=== PATIENT | female | born 1955 | race Caucasian/White ===

== ENCOUNTER 2022-07-28 11:10 | Day surgery (SDC) | payer MEDICARE, BC, SELFPAY ==
[2022-07-28] VITALS (24 sets, daily range): BP systolic 115–168; BP diastolic 63–98; PULSE 61–81; RESP 13–18; TEMP 35.8–36.9; O2SAT 87–100; BMI 33.2
[2022-07-28] MEDS: SODIUM CHLORIDE 0.9 % (FLUSH) 10 ML SYRINGE IVF (11:00)
[2022-07-28] MEDS: LACTATED RINGERS 1000 ML 1,000 ML 100 ML IV (11:00)
[2022-07-28] MEDS: CELECOXIB 200 MG CAPSULE PO ×2 (11:45→20:42)
[2022-07-28] MEDS: ACETAMINOPHEN 500 MG TABLET 1000 MG PO ×2 (11:45→19:02)
[2022-07-28] MEDS: fentaNYL 100 MCG/2 ML inj IVP (11:59)
[2022-07-28] MEDS: MIDAZOLAM HCL 1 MG/ML inj IVP (11:59)
--- NOTE | 2022-07-28 12:18 | SUR.PREOP ---
TIME?OUT:?1158 PT/RN/MDA?VERIFICATION?OF?SURGICAL?SITE,?PROCEDURE,?AND?CONSENT OBTAINED?PRIOR?TO?INVASIVE?PROCEDURE.
--- NOTE | 2022-07-28 12:37 | CRLHL7_ITS ---
For Patients: As a result of the Cures Act, medical imaging exams and procedure reports are released immediately into your electronic medical record. You may view this report before your referring provider. If you have questions, please contact your health care provider. Indication: post op TKA Technique: Two views left knee Findings/Impression: Hardware from a left total knee arthroplasty is in satisfactory position. Bone alignment is normal. No sign of acute fracture. Postop changes are within normal limits. Dictated by Sixto Wilkerson MD @ 07/29/2022 9:33:27 AM (Electronically Signed)
--- NOTE | 2022-07-28 12:37 | P.NB_ITS ---
Nerve Block Nerve Block Date Seen: 07/28/22 Type of block requested by surgeon for post-operative analgesia: geniculars Side: left Time out performed: Yes Verification of patient name: Yes Verification of date of : Yes Site marking: site marked Name of person performing procedure: Aman Continuous monitoring Was continuous monitoring of O2 sat, B/P, truck bench mechanic, recorded every 15 minutes?: Yes Procedure Checklist: sterile prep, needles and gloves Medications given in 5ml increments after negative aspiration: Ropivicaine %: 0.5 mL: 9 Needle gauge: 25 Patient tolerated procedure well: Yes Block Charges Block Charge (with Pro Fee): Genicular Nerve Block Use of Ultrasound Machine for Block: No
--- NOTE | 2022-07-28 12:37 | W.PM.NB ---
Nerve Block Nerve Block Date Seen: 07/28/22 Type of block requested by surgeon for post-operative analgesia: adductor canal Side: left Time out performed: Yes Verification of patient name: Yes Verification of date of : Yes Site marking: site marked Name of person performing procedure: Aman Continuous monitoring Was continuous monitoring of O2 sat, B/P, monitoring and evaluation advisor, recorded every 15 minutes?: Yes Procedure Checklist: sterile prep, needles and gloves Ultrasound guided. Images saved: Yes Medications given in 5ml increments after negative aspiration: Ropivicaine %: 0.5 mL: 20 Needle gauge: 20 Decadron (mg): 10 Precedex (mcg): 25 Patient tolerated procedure well: Yes Additional comments: Needle noted adjacent to nerve Block Charges Block Charge (with Pro Fee): Femoral Nerve Use of Ultrasound Machine for Block: Yes- US Guidance/pain block
--- NOTE | 2022-07-28 12:59 | W.ANESCHARGE ---
Anesthesia Charges Start Date/Time Anesthesia Start Date: 07/28/22 Anesthesia Start Time: 12:19 Stop Date/Time Anesthesia Stop Date: 07/28/22 Anesthesia Stop Time: 14:36 Summary Emergency: No
--- NOTE | 2022-07-28 13:49 | P.ORPRC_ITS ---
Procedure Note Date of procedure: 07/28/22 Procedure: PREOPERATIVE DIAGNOSIS: 1. Left knee osteoarthritis, primary, severe POSTOPERATIVE DIAGNOSIS: 1. Left knee osteoarthritis, primary, severe PROCEDURE: 1. Left total knee arthroplasty SURGEON: Franklyn Rodriguez MD. TEACHER INSTRUMENTAL: Fransisco Urbina PA-C - Of note, a skilled hospital aides and assistants teacher was critical for this case to aid in patient positioning, tissue retraction, limb manipulation/positioning, and closure. ANESTHESIA: Spinal anesthetic EBL: 50ml IMPLANTS: DePuy J&J all cemented TKA - Attune PS femur size 5 narrow, size 3 tibia, 5 poly spacer, 35 mm patella TOURNIQUET: 90 min at 300 torr COMPLICATIONS: None evident INDICATIONS: The patient is a pleasant 59-year-old female who has experienced severe left knee pain and difficulty bearing weight. Workup included x-rays which revealed severe osteoarthrosis in the knee. Given the deformity, the dysfunction, and the pain, as well as the failure of nonoperative management, recommendation was made for surgery. FINDINGS: Large effusion upon entering the joint. Full-thickness medial compartment chondral loss with erosion in the medial femur and tibia. Substantial chondromalacia remaining compartments. Small loose body seen posteriorly. Multiple osteophytes there were moderate to large in size around the perimeter. DESCRIPTION OF PROCEDURE: Following a thorough discussion of risks, benefits, and alternatives consent was obtained and the left knee was marked. The patient was brought to the operating room and placed supine on the operating table. Induction of anesthesia was undertaken. 2 g IV Ancef and 1 g tranexamic acid was administered within 1 hr of incision preoperatively. Proper time-out was performed identifying proper patient, site, procedure. The operative extremity was prepped and draped in the appropriate sterile fashion using ChloraPrep after the patient was positioned supine with all bony prominences well padded. A longitudinal, anterior, midline skin incision was made starting approximately 3cm proximal to the superior pole of the patella and advanced distal to the tibial tubercle. A median parapatellar arthrotomy was created. A medial subperiosteal sleeve was created with knife, moy elevator and curved osteotome. The retropatellar fatpad was resected and the synovium in the suprapatellar pouch excised to visualize the anterior femoral cortex. Femoral preparation was performed via an intramedullary guide. Step drill allowed access into the femoral canal. The distal cutting guide was placed with 5? of valgus and 11 mm cut on the distal femur due to flexion contracture of 15?. Femur was sized using a anterior referencing guide in 3? of external rotation. This found have a best fit with the sizing noted above. The 4 in 1 cutting block was then placed, and the distal femur shaped accordingly. The box cut was then created and the trial implant inserted to confirm appropriate fit. We turned our attention to the proximal tibia. Extramedullary guide was utilized for cutting with the goal of being 90 degree cut from the mechanical axis of the tibia in the varus/valgus plane utilizing tibial crest as the primary alignment. Initially a 2 mm resection was performed from the medial tibial plateau. Ultimately, balancing was achieved in both flexion and extension in both varus and valgus. The knee was able to achieve full extension as well comfortably. The patella was initially measured and found have a thickness of 22 mm. It was resected back to approximately 14 mm. It was sized to be a best fit with as noted above. This was drilled, trial placed. All trials were placed and found to have an excellent stability and balance. At this stage, trial implants were removed, the knee was thoroughly irrigated with normal saline, and the cement was mixed. After irrigation, the knee was thoroughly dried, and cement placed, with the real tibial and femoral implants placed along with the patella. Trial poly spacer was placed and confirmed to have excellent range of motion and full extension, and the real poly spacer opened and inserted. All extra cement was removed, and a 3 min Betadine soak performed. Finally, a final irrigation round with normal saline was performed. Closure performed with 0 PDS and #0 Stratafix for the quad tendon/retinaculum. 2-0 Vicryl/Stratafix for the subcutaneous and 4-0 Monocryl for subcuticular closure. Dressings were applied and the patient was awoken from anesthesia after the tourniquet deflated and transferred the PACU in stable condition. A skilled hospital aides and assistants teacher was critical for this case to aid in patient positioning, tissue retraction, bone exposure, limb manipulation/positioning, patient safety, and closure. PLAN: 1. Weight bear as tolerated operative extremity. 2. 23 hr perioperative antibiotics. 3. Ice. 4. PT/OT consults for ambulation assistance/mobility education. 5. Social work consult for discharge planning. 6. [facility] Nas[facility], and aspirin twice daily.
--- NOTE | 2022-07-28 14:14 | W.ANESCHARGE ---
Anesthesia Charges Start Date/Time Anesthesia Start Date: 07/28/22 Anesthesia Start Time: 12:19 Stop Date/Time Anesthesia Stop Date: 07/28/22 Anesthesia Stop Time: 14:36 Summary Emergency: No
[2022-07-28] MEDS: ONDANSETRON 2 MG/ML inj 4 MG IVP ×2 (14:59→20:42)
--- NOTE | 2022-07-28 15:24 | SUR.PHASEI ---
patient met criteria for discharge per anesthesia
[2022-07-28] MEDS: HYDROmorphone 0.5 mg/0.5 ml inj IVP ×2 (15:55→17:00)
[2022-07-28] MEDS: LACTATED RINGERS 1000 ML 1,000 ML 75 ML IV (16:00)
--- NOTE | 2022-07-28 16:16 | PM.IMCN1 ---
Date of Consult Patient: Sukumar Patient Consult date: 07/28/22 Requesting Physician: Orthopedics Primary Care Provider: Ellen Yeboah, Consult Narrative Reason for consult: Medical management of comorbidities Narrative: Meka Bashir is a 67 year old female who presented to the hospital today for elective left TKA with Dr. Luu of Orthopedic surgery. There were no operative or anesthetic complications during the procedure. Patient has no concerns for the hospitalist team today, although she complains of mild nausea postoperatively. Her preoperative H&P was reviewed, PCP is Dr. Yeboah locally. Mild anemia noted on preop labs, will have routine outpatient f/u for this. No history of blood clots, no history of blood transfusions. Patient has a history of anxiety and depression (takes Xanax QID scheduled, in addition to her fluoxetine), prediabetes with most recent A1c of 6.2, HSV infection, essential HTN. She lives independently in [place], her son will be helping her at home postoperatively. She quit smoking earlier this year, is currently using E-Cigarettes regularly. She is retired. She is COVID vaccinated. Review of Systems Status of ROS: Reports: 10 or more systems reviewed and unremarkable except as noted in History and below PFSH PFSH Medical History (Updated 07/25/22 @ 10:16 by Evelyn Villa RN) Anxiety Chronic fatigue syndrome Chronic fatigue syndrome with fibromyalgia Depression Hyperlipidemia Lyme disease (2008) Mitral valve prolapse Osteoarthritis of knees, bilateral Pre-diabetes Vitamin D deficiency Zoster without complications Surgical History (Updated 07/28/22 @ 16:23 by Deisy Steel MD) H/O hernia repair (~1996) H/O ovarian cystectomy (~1988) H/O: hysterectomy (~1996) History of sinus surgery (~2000) History of tonsillectomy (~1983) Hx laparoscopic cholecystectomy (~2001) Previous section Family History (Updated 07/22/22 @ 08:45 by Cori Estevez RN) Mother Aortic aneurysm Kidney failure Anxiety and depression Father Emphysema lung Anxiety and depression Brother Anxiety and depression Social History Highest level of school completed/degree received: Bachelor's degree Smoking Status: Former smoker Do you use any of these nicotine containing products: E-Cigarettes Nicotine containing products detail: lowest one there is Second hand tobacco smoke exposure: Yes How often do you have a drink containing alcohol: never How often do you have six or more drinks on one occasion: Never AUDIT-C Alcohol total score: 0 Non-prescribed substance use details: CBD oil, on medical marijuana program for knees Caffeine: Yes (coffee, 1 cup/day) service: No Meds Home Medications and Allergies Home Medications Medication Instructions Recorded Confirmed Type alprazolam 0.5 mg tablet 0.5 mg PO BID PRN 07/01/22 07/28/22 History atorvastatin 10 mg tablet 10 mg PO HS 07/01/22 07/25/22 History estradiol 0.5 mg tablet 0.5 mg PO DAILY 07/01/22 07/25/22 History fluoxetine 20 mg capsule 40 mg PO DAILY 07/01/22 07/28/22 History hydrochlorothiazide 25 mg tablet 25 mg PO DAILY 07/01/22 07/28/22 History montelukast 10 mg tablet 10 mg PO DAILY 07/01/22 07/28/22 History propranolol 40 mg tablet 20 mg PO BID 07/01/22 07/28/22 History acetylcysteine 600 mg capsule 600 mg PO .COMPLEX 07/25/22 07/28/22 History albuterol sulfate 90 mcg/actuation 2 inh inhalation Q4H PRN 07/25/22 07/28/22 History aerosol inhaler (ProAir HFA) alpha lipoic acid 600 mg capsule 600 mg PO .COMPLEX 07/25/22 07/28/22 History betamethasone dipropionate 0.05 % 1 applic topical BID 07/25/22 07/28/22 History topical cream cholecalciferol (vitamin D3) 125 125 mcg PO DAILY 07/25/22 07/28/22 History mcg (5,000 unit) tablet (Vitamin D3) cyanocobalamin (vitamin B-12) 1,000 mcg PO DAILY 07/25/22 07/28/22 History 1,000 mcg capsule dulaglutide 0.75 mg/0.5 mL 0.75 mg subcut QWEEK 07/25/22 07/28/22 History subcutaneous pen injector (Trulicity) glutathione 500 mg capsule 500 mg PO DAILY 07/25/22 07/28/22 History lactobacillus comb no.10 20 20,000 mmu cells PO DAILY 07/25/22 07/28/22 History billion cell capsule (Probiotic) multivitamin (Daily Multi-Vitamin 1 tab PO DAILY 07/25/22 07/28/22 History tablet) nystatin 100,000 unit/gram topical 1 applic topical BID 07/25/22 07/28/22 History ointment valacyclovir 1 gram tablet 1,000 mg PO TID PRN 07/25/22 07/28/22 History (Valtrex) valacyclovir 500 mg tablet 500 mg PO DAILY 07/25/22 07/28/22 History (Valtrex) vitamin B complex 1 cap PO BID 07/25/22 07/28/22 History zinc 50 mg tablet 50 mg PO DAILY 07/25/22 07/28/22 History Home Medication Comments: Please note, patient is not on Acetylcysteine, she is on supplement acetylcarnitine. Allergies Allergy/AdvReac Type Severity Reaction Status Date / Time azithromycin Allergy Unknown Rash Verified 07/28/22 11:18 semaglutide Allergy Unknown Gastrointestinal Verified 07/28/22 11:18 Upset cephalexin Allergy Verified 07/28/22 11:18 codeine Allergy Vomiting Verified 07/28/22 11:18 levofloxacin [From Levaquin] Allergy itchy Verified 07/28/22 11:18 meperidine Allergy Verified 07/28/22 11:18 Exam Narrative: Exam Narrative: GEN: Alert and oriented, answering questions appropriately HEENT: Normal external ears, EOMIs bilaterally, no scleral icterus CV: RRR, No concerning murmurs, rubs, or gallops R: LCTA bilaterally without concerning wheezing, rales, or rhonchi Ext: wwp, no concerning edema Skin: No concerning skin lesions or rashes on exposed skin Neuro: Nonfocal Psych: Appropriate Const: Vital Signs, click to edit/add: Vital Signs - 24 hr 07/28/22 11:50 07/28/22 11:59 07/28/22 12:10 Temperature 98.4 F Pulse Rate 74 81 73 Respiratory Rate 16 16 16 Blood Pressure 140/80 H 157/81 H 154/78 H Pulse Oximetry 97 100 100 Oxygen Delivery Me thod Room Air Nasal Cannula Nasal Cannula Oxygen Flow Rate 2 2 07/28/22 14:33 07/28/22 14:35 07/28/22 14:40 Temperature 97.3 F L 97.3 F L 97.3 F L Pulse Rate 66 66 61 Respiratory Rate 13 16 16 Blood Pressure 134/72 115/63 120/70 Pulse Oximetry 96 96 97 Oxygen Delivery Me thod Oxygen Flow Rate 07/28/22 14:45 07/28/22 14:50 07/28/22 14:55 Temperature 97.3 F L 97.3 F L 97.3 F L Pulse Rate 64 62 61 Respiratory Rate 16 14 16 Blood Pressure 120/67 131/89 138/74 Pulse Oximetry 97 99 97 Oxygen Delivery Me thod Oxygen Flow Rate 07/28/22 15:00 07/28/22 15:05 07/28/22 15:10 Temperature 97.3 F L 97.1 F L 97.1 F L Pulse Rate 69 67 64 Respiratory Rate 16 14 16 Blood Pressure 146/78 H 151/74 H 152/76 H Pulse Oximetry 98 98 98 Oxygen Delivery Me thod Oxygen Flow Rate Assessment and Plan Assessment and plan (1) History of left knee replacement: Status: Acute Assessment and Plan: - postoperative prophylaxis and pain control per Orthopedic surgery - continue home medications for the above-mentioned comorbidities - anticipate routine postoperative care in discharge home tomorrow. Hospitalist team will continue to follow
[2022-07-28] MEDS: PROMETHAZINE 25 MG/ML INJ 12.5 MG IVP (17:00)
[2022-07-28 19:00] LABS: Sodium* 136 mmol/L (135-149)
[2022-07-28] MEDS: CEFAZOLIN 2 GM in 0.9 % SODIUM CHLORIDE Mini-bag 100 ML IVPB (19:01)
[2022-07-28] MEDS: FLUCONAZOLE 100 MG TABLET 200 MG PO (19:03)
--- NOTE | 2022-07-28 19:29 | PC.NURSE ---
End of shift-- Pleasant and cooperative, alert and oriented patient arrived from PACU at approximately 1530. VSS and pt is afebrile. SPO2 maintained >94% on RA prior to pain meds. Following med administration sats dropped to 87% on RA, MD was notified and O2 was applied at 2L per n.c. >94% on 2L per n.c. Pt has c/o pain which she rated from 5-8 out of 10 in left knee and was given Dilaudid IV x2 with only partial relief. Dressing to left knee is C/D/I and pt is currently tolerating cryocuff, but has frequently refused it since arrival. CMS WNL. LS CTA. She c/o nausea and MD was notified and pt was given Phenergan per MD order. Following administration, patient has been very drowsy and will fall asleep mid-conversation. Sons are at bedside and appear loving and supportive. Report to MARY Arteaga.
[2022-07-28] MEDS: PROPRANOLOL 20 MG TABLET PO (20:42)
[2022-07-28] MEDS: ALPRAZolam 0.25 MG TABLET 0.5 MG PO (20:42)
[2022-07-28] MEDS: MONTELUKAST 10 MG TABLET PO (20:43)
[2022-07-28] MEDS: SENNOSIDES 1 TAB TABLET 2 TAB PO (20:43)
[2022-07-28] MEDS: ATORVASTATIN 10 MG TABLET PO (20:43)
[2022-07-28] MEDS: ASPIRIN 81 MG TABLET EC PO (20:43)
[2022-07-28] MEDS: HYDROCODONE-ACETAMIN 5-325 MG 1 TAB PO ×2 (21:30→23:46)
[2022-07-28] MEDS: MAG HYDROX/ALUMINUM HYD/SIMETH 30 ML ORAL.SUSP PO (23:46)
[2022-07-29] MEDS: CEFAZOLIN 2 GM in 0.9 % SODIUM CHLORIDE Mini-bag 100 ML IVPB (02:23)
[2022-07-29] MEDS: HYDROCODONE-ACETAMIN 5-325 MG 1 TAB PO ×2 (02:23→08:29)
[2022-07-29] MEDS: MAG HYDROX/ALUMINUM HYD/SIMETH 30 ML ORAL.SUSP PO (02:30)
[2022-07-29 03:00] VITALS: BP 146/71; PULSE 87; RESP 20; TEMP 36.8; O2SAT 95
[2022-07-29] MEDS: diphenhydrAMINE 50 MG/ML inj IVP (03:37)
[2022-07-29] MEDS: ONDANSETRON 2 MG/ML inj 4 MG IVP (03:37)
--- NOTE | 2022-07-29 05:39 | PC.NURSE ---
SHIFT NOTE -: Pt A&O. Initially on 1L O2 PNC, weaned to room air with oxygen saturations in the mid 90's. Afebrile. Pt anxious, PRN Xanax given with some relief. Pt with intermittent nausea, PRN Zofran given with relief, no emesis. Pt rated pain 5-7/10, PRN [place] given with pt reporting relief. Surgical dressing intact, pea sized amount of old dry drainage circled on dressing. Cryocuff on continuously. Pt itchy in the middle of night, PRN Benadryl given with relief. Pt denies SOB and CP. Pt initially up with a 2 assist and walker, poor tolerance, pt was able to walk to BR this AM with a 1 assist but very slow going and needs lots of encouragement. Pt resting in bed with call light within reach.
[2022-07-29 06:58] LABS: Basophils Percent Auto 0.1 % (0.0-3.0); Hematocrit 33.2 % (33.0-51.0); Hemoglobin* 10.9 gm/dL (12.0-16.0); Immature Granulocytes Abs Auto 0.03 K/uL (0.00-0.30); Lymphocytes Percent Auto 5.6 % (20-44); Mean Corpuscular HGB Conc 33 gm/dL (32-36); Mean Corpuscular Hemoglobin 31 pg (26-34); Mean Corpuscular Volume 93 fL (80-100); Monocytes Percent Auto 6.5 % (0.0-11.0); Neutrophils Percent Auto 87.6 % (42.0-72.0); Platelet Count* 341 K/uL (140-440); RDW Coefficient of Variation % 13.6 % (11.5-15.5); Red Blood Count 3.56 m/uL (4.00-5.20); White Blood Count* 15.28 K/uL (4.50-11.00)
[2022-07-29 07:01] LABS: Slide Review Reflex No
[2022-07-29 07:15] LABS: Potassium* 3.9 mmol/L (3.6-5.1)
[2022-07-29 07:17] LABS: Creatinine* 0.7 mg/dL (0.5-1.5); Est. Creatinine Clearance* 40.63; Estimated Glomerular Filt Rate 94 ml/min
[2022-07-29 07:18] LABS: Blood Urea Nitrogen* 25 mg/dL (7-30)
[2022-07-29 08:21] VITALS: BP 152/84; PULSE 87; RESP 18; TEMP 36.8; O2SAT 95
[2022-07-29] MEDS: SENNOSIDES 1 TAB TABLET 2 TAB PO (08:26)
[2022-07-29] MEDS: FLUOXETINE HCL 20 MG CAPSULE 40 MG PO (08:27)
[2022-07-29] MEDS: VALACYCLOVIR HCL 500 MG TABLET PO (08:27)
[2022-07-29] MEDS: ASPIRIN 81 MG TABLET EC PO (08:28)
[2022-07-29] MEDS: PROPRANOLOL 20 MG TABLET PO (08:28)
[2022-07-29] MEDS: CELECOXIB 200 MG CAPSULE PO (08:29)
[2022-07-29] MEDS: MULTIVITAMIN/MINERALS 1 TABLET 1 TAB PO (08:29)
--- NOTE | 2022-07-29 11:04 | PM.DS1 ---
DS: Providers Provider Time Seen by Provider: 09:05 Date Seen: 07/29/22 Primary care physician: Ellen Yeboah DO Consults: 07/28/22 15:34 Consult to Occupational Therapy [CONS] Routine Comment: Reason(s) for OT Consult:: ADLs Prior to Discharge Any Restrictions?:: See Comment Comment: See nursing activity order for any restrictions. Consult to Physical Therapy [CONS] Routine Comment: Ambulate in the patel today. Reason(s) for PT Consult:: TKA TX Protocol POD#0 Any Restrictions?:: See Comment Comment: See nursing activity order for any restrictions. Consult to Physician [CONS] Routine Comment: Consulting Provider: Hospitalists Has provider been notified: No Consult to Exceptional Student Education Aide [CONS] Routine Comment: Reason for Consult:: Discharge Planning Needs Attending Physician on discharge: Franklyn Rodriguez MD Date of Discharge: 07/29/22 DS: Diagnosis Discharge Diagnosis (1) History of left knee replacement: Status: Acute (2) Osteoarthritis of knees, bilateral: Status: Chronic Problem details: Severe - [id number] (3) Anxiety: Status: Chronic (4) Depression: Status: Chronic (5) Hypertension: Status: Chronic (6) Arthritis: Status: Chronic DS: Summary Hospital Course Hospital Course: This is a 67-year-old female wonder went an elective total knee arthroplasty for severe osteoarthritis. She had an unremarkable postoperative course. On the day of discharge she shared with me several concerns. She was concerned that she would have nausea with hydrocodone as she has had to take ondansetron scheduled with each hydrocodone dose in the past. She spoke with Fransisco from Orthopedics who prescribed ondansetron for her as an outpatient. She also desired fluconazole and described several regimens of fluconazole that she has been on previously to prevent sinus candidal overgrowth whenever she gets antibiotics. To be clear, she endorses no current candidal symptoms. We had an extensive discussion regarding this and I noted that she only got 24 hours of antibiotics as opposed to the 10 day regimens of antibiotics that she has been on for other diagnoses. Additionally we discussed how fluconazole and ondansetron can both prolonged QT intervals which can put her at risk for arrhythmia. I gave her the option of a 1 time dose of fluconazole as a preventative of candidal infection after having the 24 hours of antibiotics for surgery and asked that she not take any ondansetron for several days if she chooses this option. The other option would be watchful waiting without the use of fluconazole in which case she can go ahead in use the ondansetron for nausea while taking narcotic medications. If she were to develop a candidal infection, she should contact her primary care provider. She chose this latter option. She already has a prescription for ondansetron. She will follow-up with her primary care provider as needed if any Grecia infection develops. Time Spent with Patient Time attestation: Total time spent providing and/or coordinating discharge services: Exam Narrative: Exam Narrative: General: [No acute distress.] [Awake, alert, oriented x3.] [No pallor.] [No jaundice.] Oropharynx: Clear. Mucous membranes [moist]. Cardiovascular: [Regular rate and rhythm]. [No murmurs, gallops, or rubs]. Respiratory: [Clear to auscultation bilaterally. No wheezes or crackles]. Abdomen: Bowel sounds [present]. [Soft, nondistended, nontender]. Extremities: Left knee bandage has a 2 mm spot of dried blood in the very center over the knee and is otherwise clean, dry, and intact. Const: Vital Signs, click to edit/add: Vital Signs - 24 hr 07/28/22 11:50 07/28/22 11:59 07/28/22 12:10 Temperature 98.4 F Pulse Rate 74 81 73 Pulse Rate [Left D orsalis Pedis] Pulse Rate [Right Pulse Oximeter] Respiratory Rate 16 16 16 Blood Pressure 140/80 H 157/81 H 154/78 H Blood Pressure [Le ft Arm] Pulse Oximetry 97 100 100 Oxygen Delivery Me thod Room Air Nasal Cannula Nasal Cannula Oxygen Flow Rate 2 2 07/28/22 14:33 07/28/22 14:35 07/28/22 14:40 Temperature 97.3 F L 97.3 F L 97.3 F L Pulse Rate 66 66 61 Pulse Rate [Left D orsalis Pedis] Pulse Rate [Right Pulse Oximeter] Respiratory Rate 13 16 16 Blood Pressure 134/72 115/63 120/70 Blood Pressure [Le ft Arm] Pulse Oximetry 96 96 97 Oxygen Delivery Me thod Oxygen Flow Rate 07/28/22 14:45 07/28/22 14:50 07/28/22 14:55 Temperature 97.3 F L 97.3 F L 97.3 F L Pulse Rate 64 62 61 Pulse Rate [Left D orsalis Pedis] Pulse Rate [Right Pulse Oximeter] Respiratory Rate 16 14 16 Blood Pressure 120/67 131/89 138/74 Blood Pressure [Le ft Arm] Pulse Oximetry 97 99 97 Oxygen Delivery Me thod Oxygen Flow Rate 07/28/22 15:00 07/28/22 15:05 07/28/22 15:10 Temperature 97.3 F L 97.1 F L 97.1 F L Pulse Rate 69 67 64 Pulse Rate [Left D orsalis Pedis] Pulse Rate [Right Pulse Oximeter] Respiratory Rate 16 14 16 Blood Pressure 146/78 H 151/74 H 152/76 H Blood Pressure [Le ft Arm] Pulse Oximetry 98 98 98 Oxygen Delivery Me thod Oxygen Flow Rate 07/28/22 17:27 07/28/22 15:25 07/28/22 15:25 Temperature 96.5 F L 96.5 F L Pulse Rate 69 Pulse Rate [Left D orsalis Pedis] Pulse Rate [Right Pulse Oximeter] 69 Respiratory Rate 18 18 Blood Pressure Blood Pressure [Le ft Arm] 151/84 H 151/84 H Pulse Oximetry 96 95 Oxygen Delivery Me thod Nasal Cannula Room Air Room Air Oxygen Flow Rate 2 07/28/22 15:45 07/28/22 16:15 07/28/22 17:30 Temperature 96.4 F L 96.4 F L Pulse Rate Pulse Rate [Left D orsalis Pedis] Pulse Rate [Right Pulse Oximeter] 62 77 68 Respiratory Rate 16 16 14 Blood Pressure Blood Pressure [Le ft Arm] 145/70 H 142/77 H 126/76 Pulse Oximetry 96 96 87 L Oxygen Delivery Me thod Room Air Room Air Room Air Oxygen Flow Rate 07/28/22 18:00 07/28/22 16:00 07/28/22 16:30 Temperature 97.3 F L Pulse Rate Pulse Rate [Left D orsalis Pedis] Pulse Rate [Right Pulse Oximeter] 71 67 70 Respiratory Rate 16 16 16 Blood Pressure Blood Pressure [Le ft Arm] 131/72 154/74 H 164/98 H Pulse Oximetry 96 95 94 Oxygen Delivery Me thod Nasal Cannula Room Air Room Air Oxygen Flow Rate 2 07/28/22 17:00 07/28/22 19:00 07/28/22 20:00 Temperature 96.4 F L 97.6 F 97.9 F Pulse Rate Pulse Rate [Left D orsalis Pedis] Pulse Rate [Right Pulse Oximeter] 74 78 64 Respiratory Rate 16 16 18 Blood Pressure Blood Pressure [Le ft Arm] 168/87 H 128/72 145/68 H Pulse Oximetry 94 97 96 Oxygen Delivery Me thod Room Air Nasal Cannula Nasal Cannula Oxygen Flow Rate 2 2 07/28/22 21:00 07/29/22 03:00 07/29/22 08:21 Temperature 98.1 F 98.3 F Pulse Rate Pulse Rate [Left D orsalis Pedis] 87 Pulse Rate [Right Pulse Oximeter] 80 Respiratory Rate 18 20 Blood Pressure Blood Pressure [Le ft Arm] 138/79 146/71 H Pulse Oximetry 94 95 95 Oxygen Delivery Me thod Room Air Room Air Room Air Oxygen Flow Rate 07/29/22 08:21 Temperature 98.2 F Pulse Rate Pulse Rate [Left D orsalis Pedis] Pulse Rate [Right Pulse Oximeter] 87 Respiratory Rate 18 Blood Pressure Blood Pressure [Le ft Arm] 152/84 H Pulse Oximetry 95 Oxygen Delivery Me thod Room Air Oxygen Flow Rate DS: Data Data Completed and Pending Completed studies during hospitalization: Ordering Physician: Franklyn Rodriguez M.D. Date of Service: 07/28/22 Procedure(s): XR knee LT 2V Accession Number(s): [id number] cc: Franklyn Rodriguez M.D.; Ellen Yeboah DO~ For Patients: As a result of the Cures Act, medical imaging exams and procedure reports are released immediately into your electronic medical record. You may view this report before your referring provider. If you have questions, please contact your health care provider. Indication: post op TKA Technique: Two views left knee Findings/Impression: Hardware from a left total knee arthroplasty is in satisfactory position. Bone alignment is normal. No sign of acute fracture. Postop changes are within normal limits. Dictated by Sixto Wilkerson MD @ 07/29/2022 9:33:27 AM (Electronically Signed) Labs on day of discharge: Labs from last 24 hours 07/29/22 07/29/22 07/28/22 06:47 06:47 18:37 WBC 15.28 H RBC 3.56 L Hgb 10.9 L Hct 33.2 MCV 93 MCH 31 MCHC 33 RDW Coeff of Bharat 13.6 Plt Count 341 Neut % (Auto) 87.6 H Lymph % (Auto) 5.6 L Lawrence % (Auto) 6.5 Eos % (Auto) 0.0 Baso % (Auto) 0.1 Neut # (Auto) 13.40 H Lymph # (Auto) 0.90 Lawrence # (Auto) 1.00 H Eos # (Auto) 0.00 Baso # (Auto) 0.00 Abs Immat Gran (auto) 0.03 Sodium 136 Potassium 3.9 BUN 25 Creatinine 0.7 Estimated Creat Clear 40.63 Estimated GFR 94 Discharge Plan Discharge Disposition: Home, Self-Care Discharging Surgeon: Franklyn Rodriguez Follow-Up Appointment: 1 week PO with PAC Prescriptions: New celecoxib 200 mg capsule 200 mg PO BID Qty: 60 0RF aspirin 81 mg tablet,delayed release (DR/EC) 81 mg PO BID Qty: 60 0RF Rx Instructions: Medication to help prevent blood clots postoperatively; take TWICE daily. sennosides-docusate sodium [Senna-S] 8.6-50 mg tablet 1 - 4 tab-cap PO BID PRN (Reason: constipation) Qty: 60 0RF Rx Instructions: Hold medication if experiencing loose stools. hydrocodone-acetaminophen 5-325 mg tablet 1 - 2 tab PO Q4-6H MDD 6 PRN (Reason: pain) Qty: 42 0RF ondansetron 4 mg tablet,disintegrating 4 mg PO Q8H PRN (Reason: nausea and vomiting) Qty: 15 0RF Continued fluoxetine 20 mg capsule 40 mg PO DAILY montelukast 10 mg tablet 10 mg PO DAILY alprazolam 0.5 mg tablet 0.5 mg PO BID PRN estradiol 0.5 mg tablet 0.5 mg PO DAILY propranolol 40 mg tablet 20 mg PO BID Label Comments: TAKE 1/2 TABLET BY MOUTH 2 TIMES DAILY. atorvastatin 10 mg tablet 10 mg PO HS Label Comments: TAKE 1 TABLET BY MOUTH EVERYDAY AT BEDTIME hydrochlorothiazide 25 mg tablet 25 mg PO DAILY Label Comments: TAKE 1 TABLET BY MOUTH EVERY DAY acetylcysteine 600 mg capsule 600 mg PO .COMPLEX Rx Instructions: 600 mg orally; albuterol sulfate [ProAir HFA] 90 mcg/actuation HFA aerosol inhaler 2 inh inhalation Q4H PRN alpha lipoic acid 600 mg capsule 600 mg PO .COMPLEX Rx Instructions: 600 mg orally; vitamin B complex Capsule 1 cap PO BID betamethasone dipropionate 0.05 % cream 1 applic topical BID cholecalciferol (vitamin D3) [Vitamin D3] 125 mcg (5,000 unit) tablet 125 mcg PO DAILY cyanocobalamin (vitamin B-12) 1,000 mcg capsule 1,000 mcg PO DAILY Trulicity 0.75 mg/0.5 mL pen injector 0.75 mg subcut QWEEK glutathione 500 mg capsule 500 mg PO DAILY Probiotic 20 billion cell capsule 20,000 mmu cells PO DAILY Rx Instructions: administer with a meal multivitamin [Daily Multi-Vitamin] Tablet 1 tab PO DAILY nystatin 100,000 unit/gram ointment 1 applic topical BID valacyclovir [Valtrex] 1 gram tablet 1,000 mg PO TID PRN valacyclovir [Valtrex] 500 mg tablet 500 mg PO DAILY zinc 50 mg tablet 50 mg PO DAILY Activity Level: No Restrictions, Weight Bearing as Tolerated, Use Cane and Use Walker Patient Instructions: Hydrocodone/Acetaminophen (By mouth), Aspirin (By mouth), Laxative, Stimulant (By mouth), Ondansetron (By mouth), Celecoxib (By mouth), Surgical Site Infections (DC), Joint Replacement Surgery (DC) Additional Instructions: Wound: ?Do not remove original dressing; we will remove this at first postop visit in 1 week. Only remove dressing if integrity is in question. ?No immersing wound in water; showering okay; light scrub with your hand and body soap, rinse, dab dry ?Sutures are under the skin, will dissolve; allow surgical glue to come off naturally; do not scrub the wound or apply ointments/lotions ?Call our office with any redness that streaks, excessive drainage from the wound, or wound gapping. Ice/Elevate: ?Ice as needed for swelling and discomfort (cryocuff or ice pack); elevate frequently above the heart JULIA socks: ?Wear for 1 month, remove for 1 hour 3 times per day ?These are frustrating to take on/off, but are important for blood clot prevention for 1 month after surgery Blood Clot Prevention (DVT): ?Medication: 81 mg aspirin by mouth twice daily (1 month) Driving: ?Do not drive while taking narcotic pain medication ?Anticipate 4-6 weeks no driving if operative leg is driving leg Dental: ?No elective dental work for 6 months post-op. If there is an urgent/emergent dental need, contact our office for an antibiotic prescription. Smoking/Alcohol: ?Do not smoke; do no drink alcohol especially when taking postoperative oral narcotic medication Seek Care from you Primary Care Provider if you experience the following issues in the postoperative phase and beyond: ?Bacterial infections such as: pneumonia, bacterial skin infection (cellulitis), UTI, high fever, chills unrelated to the operative body part - call your primary care physician urgently for treatment in hopes to protect your health and the metal implant. Referrals: ?PT, OT per patient preference - evaluate treat total knee arthroplasty protocol (gait training, ROM, ADLs) Follow up: ?Ortho surgeon follow-up in 6 weeks; repeat radiographs three views operative knee ?LANI visit in 1 week *If there are any acute concerns regarding your surgery, please call our orthopedic clinic ([phone]) Forms: Work/Release Restrictions Follow-up: Ellen Yeboah DO [Primary Care Provider] - Fransisco Urbina PA-C [Physician Machine Installer] - 08/07/22 9:50 am ([facility] [phone]) Discharge Orders: Discharge Order (Routine); Ordered 07/29/22 Ordered By: Fransisco Urbina
--- NOTE | 2022-07-29 16:41 | P.ORPN_ITS ---
Subjective Subjective Date Seen: 07/29/22 Principal diagnosis: Status postop day 1 left total knee arthroplasty Interval history: Patient reports doing well. No acute events over night. Such was made from oxycodone to [place] prior to her taking oxycodone due to her managing nausea and vomiting with this medication. She has had [place] throughout her stay without issue. Pain managed with scheduled /PRN medications and ice. DVT prophylaxis 81 mg aspirin by mouth twice daily, bilateral knee high Nasir stockings, and SCDs. Denies fevers, chills, aches, N/V, CP, SOB/RAMON, tachycardia, or lightheadedness. She comments that with antibiotics, she typically takes fluconazole orally per her PCP for 1 week to prevent yeast infection. She develops vaginal yeast infection as well as nasal yeast infection. She is also requesting oral Zofran for nausea. Ortho Exam Narrative Exam Narrative: -Patient appears comfortable; no apparent acute distress. She has a friend visiting. She has her own pillows on her bed, is dressed in her own night gown, and is putting on makeup with a mirror -Alert and oriented times 3 -Operative knee mildly swollen; soft tissues supple; no ecchymosis; no erythematous streaking Warmth appropriate -Surgical dressing clean, dry, intact; no drainage. Small dry area blood measuring approximately 3 mm in diameter, mid bandage -Bilateral calfs soft; no significant swelling, edema, tenderness, erythema, discoloration, warmth, or palpable cords -2+ DP/PT pulses, intact dermatomes and myotomes distally (5/5 strength) Const Vital Signs, click to edit/add: Vital Signs - 24 hr 07/28/22 17:27 07/28/22 17:30 07/28/22 18:00 Temperature Pulse Rate [Left Dorsalis Pedis] Pulse Rate [Right Pulse Oximeter] 68 71 Respiratory Rate 14 16 Blood Pressure [Left Arm] 126/76 131/72 Pulse Oximetry 96 87 L 96 Oxygen Delivery Method Nasal Cannula Room Air Nasal Cannula Oxygen Flow Rate 2 2 07/28/22 17:00 07/28/22 19:00 07/28/22 20:00 Temperature 96.4 F L 97.6 F 97.9 F Pulse Rate [Left Dorsalis Pedis] Pulse Rate [Right Pulse Oximeter] 74 78 64 Respiratory Rate 16 16 18 Blood Pressure [Left Arm] 168/87 H 128/72 145/68 H Pulse Oximetry 94 97 96 Oxygen Delivery Method Room Air Nasal Cannula Nasal Cannula Oxygen Flow Rate 2 2 07/28/22 21:00 07/29/22 03:00 07/29/22 08:21 Temperature 98.1 F 98.3 F Pulse Rate [Left Dorsalis Pedis] 87 Pulse Rate [Right Pulse Oximeter] 80 Respiratory Rate 18 20 Blood Pressure [Left Arm] 138/79 146/71 H Pulse Oximetry 94 95 95 Oxygen Delivery Method Room Air Room Air Room Air Oxygen Flow Rate 07/29/22 08:21 Temperature 98.2 F Pulse Rate [Left Dorsalis Pedis] Pulse Rate [Right Pulse Oximeter] 87 Respiratory Rate 18 Blood Pressure [Left Arm] 152/84 H Pulse Oximetry 95 Oxygen Delivery Method Room Air Oxygen Flow Rate Assessment and Plan Assessment and plan (1) History of left knee replacement: Problem details: Status postop day 1 left total knee arthroplasty Status: Acute (2) Osteoarthritis of knees, bilateral: Problem details: Severe - [id number] Status: Chronic (3) Anxiety: Status: Chronic (4) Depression: Status: Chronic (5) Hypertension: Status: Chronic (6) Arthritis: Status: Chronic Plan - Complete 23 hour perioperative antibiotics - we consider prescribing for consult. There is an issue with QTC prolongation with this medication interacting with Zofran. Patient prefers to have Zofran for nausea. Thus, she will contact her PCP if she has concerns for yeast infection development. No fluconazole prescribed today. - PT/OT consult for education and assistance. - Social work consult for discharge planning - Prescribed analgesics as needed - DVT prophylaxis: 81 mg aspirin by mouth twice daily, bilateral knee high Nasir Hose stockings and SCDs - Anticipation is for discharge to home with family 07/29/2022 if the patient remains medically stable, pain is controlled, and they are safe with mobilization.
== END 2022-07-29 14:42 | disposition home or self-care (01) ==
LOC: OR 11:11 → MEDSURG 11:15
PROVIDERS: PCP Family Medicine; Visit Provider Orthopaedic Surgery Sports Medicine
PROC: (CPT 27447; principal; 2022-07-28 13:15)
DX: M17.12 Unilateral primary osteoarthritis, left knee (principal); I10 Essential (primary) hypertension; R73.03 Prediabetes; F41.9 Anxiety disorder, unspecified; F32.A Depression, unspecified; R11.2 Nausea with vomiting, unspecified
CPT/HCPCS: 27447; 01402; 36415; 64447; 64454; 73560; 76942; 82565; 84132; 84295; 84520; 85025; 97116; 97162; 97165; 97530; 97535; A9153; A9270; C1776; J0690; J1100; J1170; J1200; J2250; J2405; J2550; J2704; J2795; J3010; J7120

== ENCOUNTER 2022-10-07 15:30 | Outpatient (RCR) | payer MEDICARE, BC, SELFPAY ==
--- NOTE | 2022-07-10 13:10 | PT.OPEX ---
PT [place] [facility] Eval PT [facility] Eval Start: 07/10/22 07:51 Freq: Status: Active Protocol: Document 07/10/22 12:53 KARINAJustice (Rec: 07/10/22 13:04 KLV [id number]) E-signed By Lilian Vela, PT Physical Therapy Outpatient Evaluation Insurance Information Recert Due Date 10/04/22 Insurance Name Medicare B,Blue Cross/[employer] Medical Diagnosis Left knee pain (pre and post TKA) DOS 07/28/22 Treating Diagnosis Left knee pain, limited knee ROM, impaired L LE strength, antalgic gait, impaired balance Referring MD Michael Donis Subjective Meka (Gordon) reports to PT with primary complaint of L knee pain with anticipated TKA 07/28/22. She also reports R knee pain which she is planning to have done following her left. She lives in multilevel home however only uses top floor and 4 4 steps to enter the house with railings on both sides however will only be able to use 1 railing since stairs are too wide. Son (Jose Manuel) lives in basement with roommate and will be able to assist with everything post surgery/drive. She does not currently have FWW and SEC however will be looking to get these prior to surgery. Has a tub shower combo (prefers baths)-has a stool she can use in shower and chair next to shower for transferring). Removable shower head. Goals are to get back to walking and driving I. PMH: arthritis, fibromyalgia, hypertension Pain Comments 02/18 Date of Last Physician Visit 07/09/22 Date of Surgery (If applicable) 07/28/22 Current Work Status Retired Preferred Name Meka (Gordon) Precautions Therapy Limitations/Systems Review Not Limited Objective Other/Pertinent Objective Knee ROM: -L 0-10-137 end range tightness/discomfort in anterior knee -R 0-8-137 Palpation: gross TTP surrounding medial/lateral joint lines and superior to patella Gait: ambulates I with good heel strike, limited with TKE Denies radicular symptoms No erythema, swelling Functional Test Performed & Score LEFS: 15/80 Assessment Assessment/Impression Pt presents with signs and symptoms consistent with severe L knee OA. DOS: anticipated for 07/28/22. Expected deficits/impairments in pain, ROM, and strength. Pt would benefit from skilled PT interventions to facilitate safety post-operatively and optimize function post operatively. Today's session focused on education of HEP and safety precautions with home set-up, stair negotiation , and ADLs to follow post- operatively and how to obtain FWW/SEC prior to surgery. Patient able to verbalize and demonstrate understanding of precautions and HEP today. Primary Functional Limitations Walking, stair negotiation, standing Plan of Care Rehabilitation Potential Good Physical Therapy Goals By end of session today, patient will... Demonstrate appropriate gait pattern with FWW to utilize post surgery for optimal safety when ambulating Demonstrate ability to negotiate stairs using appropriate stair pattern post surgery for optimal safety when at home and in community Verbalize understanding of most appropriate home set up including needed equipment for optimal safety and recovery post surgery Be independent in HEP program to show ability to perform appropriate exercises post surgery Coordination/Communication With Patient Caregiver Treatment Plan/Direct Interventions Gait Training,Ice/Cold/ Vasopneumatic,Joint Mobilization,Manual Therapy, Neuromuscular Re-ed,Self-Care/ Home Management,Therapeutic Activities,Therapeutic Exercises Frequency/Duration 1-2 times per week for 8 weeks Patient Will Be Discharged From Therapy Completion of LTG(s), Independent w/HEP, Independently Progressing Evaluation Billing Untimed Code Treatment Minutes 15 Complexity Low Certification Information Initial Certification Date 07/10/22 Ending Certification Date 10/04/22 Provider Signature Shows Agreement With POC & Medical Necessity Physician Comment/Change Comment or Changes Physician NPI Number #
== END 2022-10-07 17:14 | disposition home or self-care (01) ==
PROVIDERS: PCP Family Medicine; Visit Provider Orthopaedic Surgery Sports Medicine
DX: M25.562 Pain in left knee (principal); Z51.89 Encounter for other specified aftercare
CPT/HCPCS: 97110; 97116; 97140; 97161; 97164

== ENCOUNTER 2025-03-07 14:54 | Emergency (ER) | payer MEDICARE, BC, SELFPAY ==
--- OUTSIDE RECORDS SUMMARY | 2025-03-07 14:56 | XMS_ITS | Patient Health Record ---
Author Organization [facility] [employer] [facility] - Primary Address [address] [place] [id number] Care Team Providers Care Financial Analyst Intern Name Role Phone Different, PCP Primary Care Provider Unavailabl e ALLERGIES Allergen (clinical drug ingredient) Drug/Non Drug Allergy documented on EMR Reaction Allergy Type Onset Date Status codeine nausea Drug Allergy Active meperidine Demerol vomiting Drug Allergy Active REASON FOR REFERRAL No Information MEDICATIONS Medication SIG (Take, Route, Frequency, Duration) Notes Start Date End Date Status propranolol 40 mg 1 tab(s) orally 2 ti mes a day for 30 day(s) Active PROzac 40 mg 1 cap(s) orally once a day for 30 day(s) Active Singulair 10 mg 1 tab(s) orally once a day for 30 day(s) Active ALPRAZolam 0.5 mg 1 tab(s) orally once a day (in the morning) for 10 day(s) Active estradiol 0.025 mg/24 hours weekly 1 PATCH applied topically once a week for 30 day(s) Active hydroCHLOROthiazide 25 mg 1 tab(s) orall y once a day for 30 day(s) Active valACYclovir 500 mg 1 tab(s) orally once a day for 7 day(s) Active Ozempic 2 mg/1.5 mL (0.25 mg or 0.5 mg dose) as directed subcutaneously once a week Active SOCIAL HISTORY Tobacco Use: Social History Observation Description Date Details (start date - stop date) Former Smoker NA - NA Sex Assigned At : Social History Observation Description Sex Assigned At Unknown Smoking Question Answer Notes Are you a: former smoker PROBLEMS Problem Type ICD Code Onset Dates Problem Status W/U Status Risk SNOMED Code Notes Problem Chronic pain syndrome (G89.4) Active confirmed Chronic pillo n syndrome (421960277) Problem Bilateral primary osteoarthritis of knee (M17.0) Active confirmed Osteoarthritis of knee (752078361) PLAN OF TREATMENT No Information Insurance Providers Payer Name Payer Address Payer Phone Subscriber Number Group Number Insured Name Patient Relationship to Insured Coverage Start Date Coverage End Date [facility] Medicare [address] [address] [place] [address] [id number] Meka Hidalgo Self - patient is the insured MEDICAL (GENERAL) HISTORY Medical History History ICD Code fibromyalgia fatigue knee pain pre-diabetic Surgical History Surgery Date(Month/Year)
[2025-03-07 15:01] VITALS: BP 142/70; PULSE 78; RESP 20; TEMP 36.4; O2SAT 94; BMI 32.4
--- NOTE | 2025-03-07 15:05 | CRLHL7_ITS ---
For Patients: As a result of the Century Cures Act, medical imaging exams and procedure reports are released immediately into your electronic medical record. You may view this report before your referring provider. If you have questions, please contact your health care provider. INDICATION: Leg pain and swelling. TECHNIQUE: Ultrasound venous duplex lower left extremity. Compression venous exam was performed using garcía-scale, color Doppler, and spectral Doppler analysis. COMPARISON: None. FINDINGS: Deep veins: Sonographic imaging demonstrates the left common femoral, deep femoral, superficial femoral, popliteal, posterior tibial and the contralateral right common femoral veins to be fully compressible with normal color Doppler blood flow. Superficial veins: Greater saphenous vein is fully compressible. No popliteal cyst. IMPRESSION: Normal left lower extremity venous ultrasound, no sign of deep venous thrombosis. Dictated by Sixto Suazo MD @ 03/07/2025 4:37:00 PM (Electronically Signed)
--- NOTE | 2025-03-07 15:59 | ED.GENADULT ---
HPI - General Adult General Chief complaint: Extremity Pain/Injury, Lower Stated complaint: L calf pain Time Seen by Provider: 03/07/25 15:53 History of Present Illness HPI narrative: This 70-year-old female comes in reporting pain in her left calf of her lower leg for the past 5 days. She does not report any injury event to trigger this. She does not have a history of thrombus. She arrives here with normal vital signs. She has had her left knee replaced some years ago and has been doing well with this. Related Data Home Medications ?Medication ?Instructions ?Recorded ?Confirmed alprazolam 0.5 mg tablet 0.5 mg PO BID PRN 07/01/22 02/07/25 atorvastatin 10 mg tablet 10 mg PO HS 07/01/22 02/07/25 estradiol 0.5 mg tablet 0.5 mg PO DAILY 07/01/22 02/07/25 fluoxetine 20 mg capsule 40 mg PO DAILY 07/01/22 02/07/25 hydrochlorothiazide 25 mg tablet 25 mg PO DAILY 07/01/22 02/07/25 montelukast 10 mg tablet 10 mg PO DAILY 07/01/22 02/07/25 propranolol 40 mg tablet 20 mg PO BID 07/01/22 02/07/25 alpha lipoic acid 600 mg capsule 600 mg PO .COMPLEX 07/25/22 02/07/25 betamethasone dipropionate 0.05 % 1 applic topical BID 07/25/22 02/07/25 topical cream cholecalciferol (vitamin D3) 125 125 mcg PO DAILY 07/25/22 02/07/25 mcg (5,000 unit) tablet (Vitamin D3) cyanocobalamin (vitamin B-12) 1,000 mcg PO DAILY 07/25/22 02/07/25 1,000 mcg capsule glutathione 500 mg capsule 500 mg PO DAILY 07/25/22 02/07/25 lactobacillus comb no.10 20 20,000 mmu cells PO DAILY 07/25/22 02/07/25 billion cell capsule (Probiotic) multivitamin (Daily Multi-Vitamin 1 tab PO DAILY 07/25/22 02/07/25 tablet) valacyclovir 1 gram tablet 1,000 mg PO TID PRN 07/25/22 02/07/25 (Valtrex) valacyclovir 500 mg tablet 500 mg PO DAILY 07/25/22 02/07/25 (Valtrex) vitamin B complex 1 cap PO BID 07/25/22 02/07/25 zinc 50 mg tablet 50 mg PO DAILY 07/25/22 02/07/25 Previous Rx's ?Medication ?Instructions ?Recorded aspirin 81 mg tablet,delayed 81 mg PO BID #60 tabs 07/29/22 release albuterol sulfate 90 mcg/actuation 2 puff inhalation Q4H PRN 02/07/25 aerosol inhaler shortness of breath or wheezing #1 ea benzonatate 200 mg capsule 200 mg PO BID PRN cough #30 caps 02/07/25 fluconazole 150 mg tablet 150 mg PO Q3D 2 doses #2 tabs 02/07/25 Allergies Allergy/AdvReac Type Severity Reaction Status Date / Time azithromycin Allergy Unknown Rash Verified 03/07/25 15:04 semaglutide Allergy Unknown Gastrointestinal Verified 03/07/25 15:04 Upset cephalexin Allergy Itching Verified 03/07/25 15:04 codeine Allergy Vomiting Verified 03/07/25 15:04 levofloxacin (From Levaquin) Allergy itchy Verified 03/07/25 15:04 meperidine Allergy Verified 03/07/25 15:04 Review of Systems Status of ROS: Reports: 10 or more systems reviewed and unremarkable except as noted in History and below Narrative: Constitutional: No fevers, no weight gain or loss. Eyes: No discharge. No vision changes. HENT: No congestion, no sore throat, no ear pain. Cardiovascular: No chest pain, no palpitations. Respiratory: No shortness of breath, no wheezes, no cough. Gastrointestinal: No abdominal pain, no vomiting, no diarrhea. Genitourinary: No dysuria, no hematuria. Musculoskeletal: Normal range of motion. Skin: No rashes, no pruritis. Neurological: No dizziness, weakness, sensory change, speech change. Endo/Heme/Allergies: No bruising or bleeding. No polydipsia. Pysch: no suicidality, no anxiety, no insomnia. All other systems reviewed and are negative. [facility] Medical History Pre-diabetes ?R73.03 - Prediabetes (ICD-10) Zoster without complications ?B02.9 - Zoster without complications (ICD-10) Chronic fatigue syndrome with fibromyalgia ?G93.32 - Myalgic encephalomyelitis/chronic fatigue syndrome (ICD-10) ?M79.7 - Fibromyalgia (ICD-10) Chronic fatigue syndrome ?G93.32 - Myalgic encephalomyelitis/chronic fatigue syndrome (ICD-10) Vitamin D deficiency ?E55.9 - Vitamin D deficiency, unspecified (ICD-10) Mitral valve prolapse ?I34.1 - Nonrheumatic mitral (valve) prolapse (ICD-10) Hyperlipidemia ?E78.5 - Hyperlipidemia, unspecified (ICD-10) Osteoarthritis of knees, bilateral ?M17.0 - Bilateral primary osteoarthritis of knee (ICD-10) Lyme disease (2008) ?A69.20 - Lyme disease, unspecified (ICD-10) Depression ?F32.A - Depression, unspecified (ICD-10) Anxiety ?F41.9 - Anxiety disorder, unspecified (ICD-10) Surgical History History of left knee replacement (07/28/22) ?Z96.652 - Presence of left artificial knee joint (ICD-10) History of tonsillectomy (~1983) ?Z90.89 - Acquired absence of other organs (ICD-10) Hx laparoscopic cholecystectomy (~2001) ?Z90.49 - Acquired absence of other specified parts of digestive tract (ICD-10) H/O ovarian cystectomy (~1988) ?Z98.890 - Other specified postprocedural states (ICD-10) ?Z87.42 - Personal history of other diseases of the female genital tract (ICD-10) H/O hernia repair (~1996) ?Z98.890 - Other specified postprocedural states (ICD-10) ?Z87.19 - Personal history of other diseases of the digestive system (ICD-10) H/O: hysterectomy (~1996) ?Z90.710 - Acquired absence of both cervix and uterus (ICD-10) History of sinus surgery (~2000) ?Z98.890 - Other specified postprocedural states (ICD-10) Previous section ?Z98.891 - History of uterine scar from previous surgery (ICD-10) Family History Mother Aortic aneurysm Kidney failure Anxiety and depression Father Emphysema lung Anxiety and depression Brother Anxiety and depression Social History Highest level of school completed/degree received: Bachelor's degree Smoking Status: Former smoker What tobacco products do you use: cigarettes Smoking packs per day: 0.3 Smoking cigarettes per day: 6.0 Years smoked: 50 Smoking pack-years: 15.00 Smoking quit date/years: <= 15 years ago Do you use any of these nicotine containing products: E-Cigarettes Nicotine containing products detail: lowest one there is Second hand tobacco smoke exposure: Yes How often do you have a drink containing alcohol: never How often do you have six or more drinks on one occasion: Never AUDIT-C Alcohol total score: 0 Non-prescribed substance use: other Non-prescribed substance use details: CBD oil, on medical marijuana program for knees Caffeine: Yes (coffee, 1 cup/day) service: No Exam Narrative: Exam Narrative: Constitutional: Well-developed, well-nourished, no acute distress. HEENT: Normocephalic, atraumatic. Neck: Normal range of motion. Nontender. Supple. Heart: Regular. No murmurs. Normal rate. Intact distal pulses. Lungs: Clear to auscultation. No chest discomfort. No wheezes, rhonchi, or rales. Abdomen: Normal bowel sounds. Nontender. No rebound tenderness. Genitalia: Deferred. Back: No midline tenderness. Normal range of motion. Extremities: Normal range of motion. No injury. Diffuse pain in the lateral aspect of the left calf region. No sign of swelling or skin discoloration. Skin: Intact. No rash. Warm. No erythema or pallor. Neurologic: No altered sensation. No weakness. Alert and oriented. Psychiatric: No suicidality. No anxiety or depression. No insomnia. Nursing notes and vitals signs are reviewed. Const: Vital Signs, click to edit/add: Vital Signs - 24 hr 03/07/25 15:01 Temperature 97.6 F Pulse Rate [Pulse Oximeter] 78 Respiratory Rate 20 Blood Pressure [Ri ght Upper Arm] 142/70 H Pulse Oximetry 94 Oxygen Delivery Me thod Room Air Course Vital Signs Vital signs: Initial Vital Signs Temperature 97.6 F 03/07/25 15:01 Temperature Source Temporal Artery Scan 03/07/25 15:01 Pulse Rate 78 03/07/25 15:01 Pulse Rhythm Regular 03/07/25 15:01 Pulse Strength 3+ Normal 03/07/25 15:01 Respiratory Rate 20 03/07/25 15:01 Blood Pressure 142/70 H 03/07/25 15:01 Blood Pressure Mean 94 03/07/25 15:01 Blood Pressure Position Sitting 03/07/25 15:01 Pulse Oximetry 94 03/07/25 15:01 Oxygen Delivery Method Room Air 03/07/25 15:01 Vital Signs Temperature 97.6 F 03/07/25 15:01 Pulse Rate 78 03/07/25 15:01 Respiratory Rate 20 03/07/25 15:01 Blood Pressure 142/70 H 03/07/25 15:01 Pulse Oximetry 94 03/07/25 15:01 Oxygen Delivery Method Room Air 03/07/25 15:01 Temperature 97.6 F 03/07/25 15:01 Pulse Rate 78 03/07/25 15:01 Respiratory Rate 20 03/07/25 15:01 Blood Pressure 142/70 H 03/07/25 15:01 Pulse Oximetry 94 03/07/25 15:01 Oxygen Delivery Method Room Air 03/07/25 15:01 Medical Decision Making MDM Narrative Medical decision making narrative: This patient comes in reporting some pain in her left leg and is here essentially to rule out a blood clot. She does not have any personal history of blood clot. Ultrasound imaging is obtained and shows no evidence of thrombus. This was reassuring to the patient. She is okay to be discharged home to resume activities as tolerated. Discharge Plan Discharge Clinical Impression: Left leg pain Patient Disposition: Home, Self-Care Condition: Stable Additional Instructions: Activity as tolerated. Use [id number] medicines as needed and directed. Follow up with MD return if worsening. Prescriptions: No Action albuterol sulfate 90 mcg/actuation HFA aerosol inhaler 2 puff inhalation Q4H PRN (Reason: shortness of breath or wheezing) Qty: 1 0RF benzonatate 200 mg capsule 200 mg PO BID PRN (Reason: cough) Qty: 30 0RF fluconazole 150 mg tablet 150 mg PO Q3D 0 Days Qty: 2 0RF Rx Instructions: may repeat second dose 72 hrs after first dose if symptoms persist fluoxetine 20 mg capsule 40 mg PO DAILY montelukast 10 mg tablet 10 mg PO DAILY alprazolam 0.5 mg tablet 0.5 mg PO BID PRN estradiol 0.5 mg tablet 0.5 mg PO DAILY propranolol 40 mg tablet 20 mg PO BID Patient Comments: TAKE 1/2 TABLET BY MOUTH 2 TIMES DAILY. atorvastatin 10 mg tablet 10 mg PO HS Patient Comments: TAKE 1 TABLET BY MOUTH EVERYDAY AT BEDTIME hydrochlorothiazide 25 mg tablet 25 mg PO DAILY Patient Comments: TAKE 1 TABLET BY MOUTH EVERY DAY alpha lipoic acid 600 mg capsule 600 mg PO .COMPLEX Rx Instructions: 600 mg orally; vitamin B complex Capsule 1 cap PO BID betamethasone dipropionate 0.05 % cream 1 applic topical BID cholecalciferol (vitamin D3) [Vitamin D3] 125 mcg (5,000 unit) tablet 125 mcg PO DAILY cyanocobalamin (vitamin B-12) 1,000 mcg capsule 1,000 mcg PO DAILY glutathione 500 mg capsule 500 mg PO DAILY Probiotic 20 billion cell capsule 20,000 mmu cells PO DAILY Rx Instructions: administer with a meal multivitamin [Daily Multi-Vitamin] Tablet 1 tab PO DAILY valacyclovir [Valtrex] 1 gram tablet 1,000 mg PO TID PRN valacyclovir [Valtrex] 500 mg tablet 500 mg PO DAILY zinc 50 mg tablet 50 mg PO DAILY aspirin 81 mg tablet,delayed release (DR/EC) 81 mg PO BID Qty: 60 0RF Rx Instructions: Medication to help prevent blood clots postoperatively; take TWICE daily. Follow Up/Referrals: Ellen Yeboah DO [Primary Care Provider, Family Practice] Stand Alone Forms: [facility] Info Instructions
== END 2025-03-07 17:07 | disposition home or self-care (01) ==
LOC: ED 16:59
PROVIDERS: Emergency Provider Emergency Medicine Emergency Medical Services; PCP Family Medicine
DX: M79.662 Pain in left lower leg (principal)
CPT/HCPCS: 93971; 99283; 99284

== ENCOUNTER 2025-03-18 12:46 | Outpatient (CLI) | payer MEDICARE, BC, SELFPAY | END 2025-03-18 12:47 | disposition home or self-care (01) | LOC: NFLDREF 03-19 00:57 | PROVIDERS: PCP Family Medicine; Referring Provider Family Medicine; Visit Provider Physician Assistant Surgical | DX: R30.0 Dysuria (principal); N30.01 Acute cystitis with hematuria; R05.9 Cough, unspecified; R05.1 Acute cough; R06.02 Shortness of breath | CPT/HCPCS: 87086 ==